=== PATIENT | male | born 1975 | race Caucasian/White ===

== ENCOUNTER 2016-05-06 08:31 | Inpatient (IN) | payer OTHER ==
[~2016-05-06] VITALS: Ht 162.6 cm; Wt 58.4 kg
[2016-05-06] VITALS (16 sets, daily range): BP systolic 113–160; BP diastolic 60–106; PULSE 72–113; RESP 16; TEMP 98–100; O2SAT 98–100
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
[2016-05-06] MEDS ORDERED: TETANUS/DIPHTHERIA TOXOID ADULT 0.5 ML VIAL IM ONE (09:00)
[2016-05-06 09:31] LABS: BLOOD GAS BASE EXCESS -1.7 mmol/L (-2-2); BLOOD GAS CARBOXYHEMOGLOBIN 1.4 % (0-4); BLOOD GAS HCO3 22 mmol/L (22-26); BLOOD GAS METHEMOGLOBIN 0.8 % (0-2); BLOOD GAS O2 HGB SATURATION 97 % (90-100); BLOOD GAS OXYGEN CONTENT 15.3 Vol % (12.0-20.0); BLOOD GAS PCO2 35 mmHg (38-42); BLOOD GAS PO2 164 mmHG (61-120); TEMP CORR TO 98.6
[2016-05-06 09:32] LABS: CRITICAL VALUE NO; FIO2 35 %; OXYGEN DEVICE VENTILATOR; VENT SETTINGS AC/16/ 500 5 PEEP
[2016-05-06 09:33] LABS: DRAW SITE RT RADIAL; NUMBER OF ARTERIAL PUNCTURES 1; STAT YES; ULNAR PULSE PRESENT
[2016-05-06] MEDS: PROPOFOL 1000 MG/100 ML INJ 100 ML IV SCH ×4 (09:54→22:38)
[2016-05-06] MEDS ORDERED: PANTOPRAZOLE SODIUM 40 MG VIAL IVP SCH (10:00)
[2016-05-06] MEDS ORDERED: ENALAPRILAT 1.25 MG/ML VIAL IV PRN (10:00)
[2016-05-06] MEDS ORDERED: MISCELLANEOUS NURSING INFORMATION XX SCH ×2 (10:00→14:45)
[2016-05-06] MEDS ORDERED: SODIUM CHLORIDE 0.9% FLUSH 10 ML FLUSH IV FLUSH PRN ×2 (10:00→14:45)
[2016-05-06] MEDS ORDERED: ONDANSETRON HCL 4 MG/2 ML VIAL IV PRN ×2 (10:00→14:45)
[2016-05-06] MEDS ORDERED: CHLORHEXIDINE GLUCONATE 2 % 1 PACK (2 CLOTHS) TOP PRN ×2 (10:00→14:45)
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
[2016-05-06] MEDS ORDERED: NOREPINEPHRINE 4 MG/4 ML AMP ONE (10:59)
[2016-05-06] MEDS ORDERED: GELFOAM SIZE 100 ONE (11:08)
[2016-05-06] MEDS ORDERED: THROMBIN (TOPICAL) 5,000 UNIT VIAL ONE (11:08)
[2016-05-06] MEDS ORDERED: LIDOCAINE 1%/EPINEPHrine 1:100,000 SOLN 30 ML VIAL ONE (11:08)
[2016-05-06] MEDS ORDERED: VANCOMYCIN HCL 1000 MG VIAL ONE (11:08)
[2016-05-06] MEDS ORDERED: ceFAZolin 2 GM PREMIX 50 ML ONE (11:08)
[2016-05-06] MEDS ORDERED: levETIRAcetam 500 MG/5 ML VIAL IV ONE (11:09)
[2016-05-06] MEDS ORDERED: GENTAMICIN SULFATE 80 MG/2 ML VIAL ONE (11:09)
[2016-05-06] MEDS ORDERED: SODIUM CHLOR 0.9% 250 ML INJ 250 ML ONE (11:09)
[2016-05-06] MEDS ORDERED: MANNITOL INJ 50 ML ONE (11:09)
[2016-05-06] MEDS ORDERED: FUROSEMIDE 40 MG/4 ML VIAL ONE (11:09)
[2016-05-06 11:27] LABS: HEMATOCRIT 34.6 % (39.0-51.0); MEAN CELL VOLUME 91.1 FL (80.0-100.0); MEAN CORPUSCULAR HEMOGLOBIN 30.5 PG (27.0-34.0); MEAN CORPUSCULAR HGB CONC 33.5 % (32.0-36.0); PLATELET COUNT 254 TH/MM3 (150-450); RED CELL DISTRIBUTION WIDTH 12.9 % (11.6-17.2); REVIEW FLAG FINAL; WHITE BLOOD COUNT 10.9 TH/MM3 (4.0-11.0)
[2016-05-06 11:38] LABS: APTT (PATIENT) 23.6 SEC (24.3-30.1); INTERNATIONAL NORMALIZED RATIO 0.9 RATIO; PROTHROMBIN TIME - PATIENT 10.4 SEC (9.8-11.6)
[2016-05-06] MEDS: BACITRACIN TOP OINT 15 GM TUBE TOP SCH ×3 (11:45→20:53)
[2016-05-06 11:55] LABS: BICARBONATE 24.2 MEQ/L (21.0-32.0); CALCIUM-PROTEIN CORRECTED 7.7 MG/DL (8.5-10.1); POTASSIUM 3.6 MEQ/L (3.5-5.1); TOTAL BILIRUBIN ADULT 0.3 MG/DL (0.2-1.0)
[2016-05-06] MEDS ORDERED: LACTATED RINGER'S 1000 ML INJ 1,000 ML IV ONE (12:00)
[2016-05-06] MEDS ORDERED: PROPOFOL 200 MG/20 ML AMP IV ONE (12:00)
[2016-05-06] MEDS ORDERED: PHENYLEPH/NS 1000 MCG/10 ML SYR IV ONE (12:00)
[2016-05-06] MEDS ORDERED: DO NOT ADM ANY ANTICOAGULANT DRUGS XX PRN (13:46)
[2016-05-06] MEDS ORDERED: NS + KCL 20 MEQ INJ 1,000 ML IV SCH (13:59)
[2016-05-06] MEDS ORDERED: SODIUM CHLORIDE 0.9% FLUSH 5 ML FLUSH IVF PRN (14:00)
[2016-05-06] MEDS ORDERED: SODIUM CHLORIDE 0.9% FLUSH 5 ML FLUSH IVF SCH (14:00)
[2016-05-06 14:17] LABS: BLOOD GAS BASE EXCESS -3.4 mmol/L (-2-2); BLOOD GAS CARBOXYHEMOGLOBIN 1.2 % (0-4); BLOOD GAS HCO3 21 mmol/L (22-26); BLOOD GAS METHEMOGLOBIN 1.4 % (0-2); BLOOD GAS O2 HGB SATURATION 97 % (90-100); BLOOD GAS OXYGEN CONTENT 14.2 Vol % (12.0-20.0); BLOOD GAS PCO2 39 mmHg (38-42); BLOOD GAS PO2 175 mmHg (61-120); BLOOD GAS TOTAL HGB 10.1 G/DL (12.0-16.0); CRITICAL VALUE NO; OXYGEN DEVICE VENTILATOR; TEMP CORR TO 98.6
[2016-05-06 14:18] LABS: DRAW SITE ART LINE; FIO2 40 %; STAT NO; VENT SETTINGS AC114/450/PEEP5
[2016-05-06] MEDS ORDERED: *morphine SULFATE 8 MG/ML PERIprocedure ONLY ONE (14:23)
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
[2016-05-06] MEDS ORDERED: RESP: ALBUTEROL 2.5 MG/IPRATROPIUM 0.5 MG NEB (PRN) INH (14:45)
[2016-05-06] MEDS ORDERED: POTASSIUM PHOSPHATE INJ 30 MMOL in SODIUM CHLOR 0.9% 250 ML INJ 250 ML IV PRN (14:45)
[2016-05-06] MEDS ORDERED: MAGNESIUM OXIDE 400 MG TAB PO PRN (14:45)
[2016-05-06] MEDS ORDERED: POTASSIUM PHOSPHATE MONOBASIC 500 MG TAB PO/TUBE PRN (14:45)
[2016-05-06] MEDS ORDERED: MAGNESIUM SULFATE INJ 4 GM in SODIUM CHLORIDE 0.9% INJ 92 ML IV PRN (14:45)
[2016-05-06] MEDS ORDERED: SODIUM PHOSPHATE INJ 30 MMOL in SODIUM CHLOR 0.9% 250 ML INJ 240 ML IV PRN (14:45)
[2016-05-06] MEDS ORDERED: POTASSIUM CHLOR 40 MEQ PREMIX 100 ML IV PRN ×2 (14:45)
[2016-05-06] MEDS ORDERED: MAGNESIUM SULFATE INJ 2 GM in SODIUM CHLORIDE 0.9% INJ 96 ML IV PRN (14:45)
[2016-05-06] MEDS ORDERED: fentaNYL DRIP 250 ML IV SCH (14:45)
[2016-05-06] MEDS ORDERED: POTASSIUM PHOSPHATE MONOBASIC 500 MG TAB PO PRN (14:45)
[2016-05-06] MEDS ORDERED: DEXTROSE 50% IN WATER 50 ML VIAL(D50) IV PUSH PRN (14:45)
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
[2016-05-06] MEDS ORDERED: MORPHINE SULFATE 4 MG/ML INJ IV PUSH PRN ×2 (15:00)
[2016-05-06] MEDS ORDERED: DOCUSATE SODIUM 100 MG CAP PO SCH (15:00)
[2016-05-06] MEDS ORDERED: PANTOPRAZOLE SOD 40 MG DELAYED RELEASE TAB PO SCH (15:00)
[2016-05-06] MEDS ORDERED: BISACODYL 10 MG SUPP PR PRN (15:00)
[2016-05-06] MEDS ORDERED: ACETAMINOPHEN 325 MG TAB PO PRN (15:00)
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
--- NOTE | 2016-05-06 15:06 | RADRPT ---
EXAM DATE/TIME: 05/06/2016 14:34 [facility] COMPARISON: No previous studies available for comparison. INDICATIONS : Central line placement. MEDICAL HISTORY : Unobtainbale. SURGICAL HISTORY : Unobtainbale. ENCOUNTER: Initial ACUITY: 1 day PAIN SCORE: Non-responsive. LOCATION: Bilateral chest FINDINGS: A single view of the chest demonstrates the lungs to be symmetrically aerated without evidence of mas s, infiltrate or effusion. The cardiomediastinal contours are unremarkable. Osseous structures are intact. CONCLUSION: 1. The ET tube is in excellent position. The lungs are clear. Armando Aparicio MD on May 06, 2016 at 15:04 Board Certified Radiologist. This report was verified electronically.
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
[2016-05-06] MEDS: RESP: ALBUTEROL 2.5 MG/IPRATROPIUM 0.5 MG NEB (SCH) INH ×2 (16:01→21:02)
[2016-05-06] MEDS: SODIUM CHLOR 0.9% 1000 ML INJ 1,000 ML IV SCH (16:48)
[2016-05-06] MEDS: PANTOPRAZOLE SODIUM 40 MG VIAL IVP SCH (17:03)
[2016-05-06] MEDS: INSULIN NovoLIN REGULAR SUPPLEMENTAL SCALE SQ SCH ×2 (17:24→23:49)
[2016-05-06] MEDS ORDERED: TERBUTALINE INJ 1 MG/ML AMP SQ PRN (17:45)
[2016-05-06] MEDS ORDERED: niCARdipine INJ 25 MG in SODIUM CHLOR 0.9% 250 ML INJ 250 ML IV SCH (17:45)
[2016-05-06] MEDS: ceFAZolin 2 GM PREMIX 50 ML IV SCH (18:14)
[2016-05-06] MEDS ORDERED: PHENYLEPHRINE INJ 40 MG in DEXTROSE 5% IN WATE 500 ML INJ 496 ML IV SCH ×2 (18:45)
[2016-05-06] MEDS: CHLORHEXIDINE 0.12% (ORAL KIT) 15 ML CUP MT SCH (20:00)
[2016-05-06] MEDS: DOCUSATE SODIUM 50 MG/SENNA 8.6 MG TAB PO SCH (20:52)
[2016-05-06] MEDS: SODIUM CHLORIDE 0.9% FLUSH 10 ML FLUSH IV FLUSH SCH (20:53)
[2016-05-07] VITALS (14 sets, daily range): BP systolic 99–122; BP diastolic 54–77; PULSE 68–105; RESP 16; TEMP 98.8–99.6; O2SAT 100
[2016-05-07] MEDS: SODIUM CHLOR 0.9% 1000 ML INJ 1,000 ML IV SCH ×3 (00:40→20:33)
[2016-05-07] MEDS: levETIRAcetam INJ 500 MG in SODIUM CHLORIDE 0.9% INJ 100 ML IV SCH ×2 (00:50→12:50)
[2016-05-07] MEDS: ceFAZolin 2 GM PREMIX 50 ML IV SCH ×2 (02:35→10:48)
--- NOTE | 2016-05-07 03:26 | RADRPT ---
EXAM DATE/TIME: 05/07/2016 02:13 [facility] COMPARISON: CHEST SINGLE AP, May 06, 2016, 14:34. INDICATIONS : Short of breath. MEDICAL HISTORY : None. SURGICAL HISTORY : None. ENCOUNTER: Subsequent ACUITY: 1 day PAIN SCORE: Non-responsive. LOCATION: Bilateral chest FINDINGS: Endotracheal tube and enteric tube identified. Side port overlies the distal esophagus. Lungs are milo ar. Osseous structures are intact. CONCLUSION: Enteric tube side-port at the distal esophagus approaching the EG junction. This should be advanced. Clear lungs. Oscar Manuel MD on May 07, 2016 at 3:24 Board Certified Radiologist. This report was verified electronically.
[2016-05-07] MEDS: PROPOFOL 1000 MG/100 ML INJ 100 ML IV SCH ×4 (03:40→20:39)
[2016-05-07] MEDS ORDERED: LIDOCAINE HCL 2% 100 MG/5 ML SYRINGE ONE (03:41)
[2016-05-07] MEDS ORDERED: ATROPINE SULFATE 1 MG/10 ML SYRINGE ONE (03:41)
[2016-05-07] MEDS ORDERED: EPINEPHrine HCL (1:10,000) 1 MG/10 ML SYRINGE ONE (03:41)
[2016-05-07] MEDS: RESP: ALBUTEROL 2.5 MG/IPRATROPIUM 0.5 MG NEB (SCH) INH ×4 (03:47→22:14)
[2016-05-07] MEDS ORDERED: CHLORHEXIDINE GLUCONATE 2 % 1 PACK (2 CLOTHS) TOP SCH (04:00)
[2016-05-07] MEDS: CHLORHEXIDINE GLUCONATE 2 % 1 PACK (2 CLOTHS) TOP SCH (04:00)
--- NOTE | 2016-05-07 04:47 | RADRPT ---
EXAM DATE/TIME: 05/07/2016 04:35 [facility] COMPARISON: CT BRAIN W/O CONTRAST, May 06, 2016, 10:05. INDICATIONS : Evaluate hemorrhage. RADIATION DOSE: 38.32 CTDIvol (mGy) MEDICAL HISTORY : Non-responsive. SURGICAL HISTORY : Non-responsive. ENCOUNTER: Initial ACUITY: 1 day PAIN SCALE: Non-responsive LOCATION: cranial TECHNIQUE: Multiple contiguous axial images were obtained of the head. Using automated exposure control and adj ustment of the mA and/or kV according to patient size, radiation dose was kept as low as reasonably a chievable to obtain optimal diagnostic quality images. FINDINGS: There is hemorrhage in the right maxillary sinus and right facial soft tissue swelling seen. Right sc alp soft tissue swelling is noted i am the patient is status post right frontal craniotomy. There is a depressed right frontal comminuted skull fracture is seen. Skin chelsey are present. Frontal approa ch ICP monitor is noted terminating in the right frontal white matter. There is a subdural drain from a right frontal approach identified. There is a hematoma seen in the right frontal lobe with trace s urrounding edema. It is slightly decreased in size measuring 3.1 x 2.1 cm in AP transverse dimension on axial 14. There is a small overlying right frontal subdural hematoma with a maximum transverse wid th of 4 mm. There is mild right to left shift of 5 mm. CONCLUSION: Slight interval decrease in size of right frontal parenchymal bleed with interval drain placement. Ri ght to left shift is noted. Oscar Manuel MD on May 07, 2016 at 4:42 Board Certified Radiologist. This report was verified electronically.
[2016-05-07 05:35] LABS: AUTOMATED NEUTROPHIL # 8.2 TH/MM3 (1.8-7.7); BASOPHIL % 0.2 % (0.0-2.0); EOSINOPHIL % 0.3 % (0.0-4.0); HEMATOCRIT 29.6 % (39.0-51.0); HEMO FLAGS DIFF FINAL; LYMPH % 13.8 % (9.0-44.0); LYMPHOCYTE # 1.6 TH/MM3 (1.0-4.8); MEAN CELL VOLUME 90.1 FL (80.0-100.0); MEAN CORPUSCULAR HEMOGLOBIN 30.9 PG (27.0-34.0); MEAN CORPUSCULAR HGB CONC 34.3 % (32.0-36.0); MONO % 13.4 % (0.0-8.0); NEUT % 72.3 % (16.0-70.0); PLATELET COUNT 252 TH/MM3 (150-450); RED BLOOD COUNT 3.29 MIL/MM3 (4.50-5.90); WHITE BLOOD COUNT 11.3 TH/MM3 (4.0-11.0)
[2016-05-07 05:37] LABS: BLOOD GAS BASE EXCESS 0.5 mmol/L (-2-2); BLOOD GAS CARBOXYHEMOGLOBIN 0.8 % (0-4); BLOOD GAS HCO3 24 mmol/L (22-26); BLOOD GAS O2 HGB SATURATION 97 % (90-100); BLOOD GAS OXYGEN CONTENT 13.9 Vol % (12.0-20.0); BLOOD GAS PCO2 33 mmHg (38-42); BLOOD GAS PO2 154 mmHg (61-120); BLOOD GAS TOTAL HGB 9.9 G/DL (12.0-16.0); CRITICAL VALUE NO; FIO2 35 %; OXYGEN DEVICE VENTILATOR; TEMP CORR TO 98.6; VENT SETTINGS PRVC/AC
[2016-05-07 05:38] LABS: DRAW SITE ART LINE; STAT NO
[2016-05-07] MEDS: INSULIN NovoLIN REGULAR SUPPLEMENTAL SCALE SQ SCH ×3 (06:00→17:35)
[2016-05-07 06:13] LABS: ALKALINE PHOSPHATASE 61 U/L (45-117); ALT (GPT) 31 U/L (12-78); ANION GAP 10 MEQ/L (5-15); AST (GOT) 29 U/L (15-37); BICARBONATE 24.6 MEQ/L (21.0-32.0); BLOOD UREA NITROGEN 6 MG/DL (7-18); CHLORIDE 106 MEQ/L (98-107); GLOMERULAR FILTRATION RATE 146 ML/MIN (>89); SODIUM (NA) 141 MEQ/L (136-145); TOTAL BILIRUBIN ADULT 0.3 MG/DL (0.2-1.0)
[2016-05-07] MEDS: POTASSIUM CHLOR 20 MEQ PREMIX 100 ML IV PRN ×2 (06:36→08:46)
[2016-05-07] MEDS: CHLORHEXIDINE 0.12% (ORAL KIT) 15 ML CUP MT SCH ×2 (08:00→20:33)
[2016-05-07] MEDS: DOCUSATE SODIUM 50 MG/SENNA 8.6 MG TAB PO SCH ×2 (08:46→20:32)
[2016-05-07] MEDS: PANTOPRAZOLE SODIUM 40 MG VIAL IVP SCH (08:46)
[2016-05-07] MEDS: SODIUM CHLORIDE 0.9% FLUSH 10 ML FLUSH IV FLUSH SCH ×2 (08:47→20:33)
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
[2016-05-07] MEDS: SODIUM CHLORIDE 23.4% INJ 188 MEQ in SODIUM CHLOR 0.9% 1000 ML INJ 1,000 ML IV SCH (11:07)
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
[2016-05-07] MEDS: VALPROATE INJ 250 MG in SODIUM CHLORIDE 0.9% INJ 100 ML IV SCH ×2 (12:15→20:32)
[2016-05-07] MEDS: HALOPERIDOL LACTATE 5 MG/ML AMP IV PRN ×2 (12:50→18:14)
[2016-05-07] MEDS ORDERED: SODIUM CHLOR 0.9% 1000 ML INJ 1,000 ML IV ONE (16:00)
[2016-05-07] MEDS: BACITRACIN TOP OINT 15 GM TUBE TOP SCH (20:34)
[2016-05-08] VITALS (18 sets, daily range): BP systolic 97–120; BP diastolic 54–73; PULSE 70–99; RESP 16–24; TEMP 97.7–101; O2SAT 96–100
[2016-05-08] MEDS: levETIRAcetam INJ 500 MG in SODIUM CHLORIDE 0.9% INJ 100 ML IV SCH ×2 (00:07→12:56)
[2016-05-08] MEDS: RESP: ALBUTEROL 2.5 MG/IPRATROPIUM 0.5 MG NEB (SCH) INH ×4 (03:41→20:31)
[2016-05-08 03:42] LABS: HEMATOCRIT 24.1 % (39.0-51.0); MEAN CORPUSCULAR HGB CONC 34.1 % (32.0-36.0); PLATELET COUNT 182 TH/MM3 (150-450); RED BLOOD COUNT 2.65 MIL/MM3 (4.50-5.90); RED CELL DISTRIBUTION WIDTH 12.9 % (11.6-17.2); REVIEW FLAG FINAL; WHITE BLOOD COUNT 6.9 TH/MM3 (4.0-11.0)
[2016-05-08] MEDS: CHLORHEXIDINE GLUCONATE 2 % 1 PACK (2 CLOTHS) TOP SCH (04:00)
[2016-05-08] MEDS: PROPOFOL 1000 MG/100 ML INJ 100 ML IV SCH (04:03)
[2016-05-08 04:08] LABS: POTASSIUM 3.5 MEQ/L (3.5-5.1)
[2016-05-08 04:32] LABS: CALCIUM-PROTEIN CORRECTED 8.8 MG/DL (8.5-10.1)
[2016-05-08 05:32] LABS: BLOOD GAS BASE EXCESS 0.1 mmol/L (-2-2); BLOOD GAS HCO3 24 mmol/L (22-26); BLOOD GAS METHEMOGLOBIN 1.1 % (0-2); BLOOD GAS O2 HGB SATURATION 96 % (90-100); BLOOD GAS OXYGEN CONTENT 11.2 Vol % (12.0-20.0); BLOOD GAS PCO2 36 mmHg (38-42); BLOOD GAS PO2 96 mmHg (61-120); BLOOD GAS TOTAL HGB 8.2 G/DL (12.0-16.0); CRITICAL VALUE NO; DRAW SITE RT RADIAL; FIO2 35 %; NUMBER OF ARTERIAL PUNCTURES 1; OXYGEN DEVICE VENTILATOR; STAT NO; TEMP CORR TO 98.6; ULNAR PULSE PRESENT; VENT SETTINGS PRVC/AC
[2016-05-08] MEDS: INSULIN NovoLIN REGULAR SUPPLEMENTAL SCALE SQ SCH ×5 (06:00→23:28)
[2016-05-08] MEDS: SODIUM CHLOR 0.9% 1000 ML INJ 1,000 ML IV SCH (06:22)
--- NOTE | 2016-05-08 06:37 | RADRPT ---
EXAM DATE/TIME: 05/08/2016 05:32 [place] COMPARISON: CHEST SINGLE AP, May 07, 2016, 2:13. INDICATIONS : Shortness of breath. MEDICAL HISTORY : None. SURGICAL HISTORY : None. ENCOUNTER: Subsequent ACUITY: 3 days PAIN SCORE: Non-responsive. LOCATION: Bilateral chest FINDINGS: A single view of the chest demonstrates the lungs to be symmetrically aerated without evidence of mas s, infiltrate or effusion. Tip of the endotracheal tube 4 cm proximal to the anjelica. Nasogastric tub e tip in the region of the body of the stomach. The cardiomediastinal contours are unremarkable. Oss eous structures are intact. CONCLUSION: No acute disease. Lawrence Stephenson Jr., MD on May 08, 2016 at 6:35 Board Certified Radiologist. This report was verified electronically.
[2016-05-08] MEDS: CHLORHEXIDINE 0.12% (ORAL KIT) 15 ML CUP MT SCH ×2 (08:19→19:33)
[2016-05-08] MEDS: BACITRACIN TOP OINT 15 GM TUBE TOP SCH ×2 (09:00→19:33)
[2016-05-08] MEDS: DOCUSATE SODIUM 50 MG/SENNA 8.6 MG TAB PO SCH ×2 (09:41→19:33)
[2016-05-08] MEDS: PANTOPRAZOLE SODIUM 40 MG VIAL IVP SCH (09:42)
[2016-05-08] MEDS: SODIUM CHLORIDE 0.9% FLUSH 10 ML FLUSH IV FLUSH SCH ×2 (09:43→19:33)
[2016-05-08] MEDS: VALPROATE INJ 250 MG in SODIUM CHLORIDE 0.9% INJ 100 ML IV SCH ×2 (09:44→21:08)
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
[2016-05-08] MEDS ORDERED: FUROSEMIDE 40 MG/4 ML VIAL IV PUSH ONE (12:00)
[2016-05-08] MEDS: POTASSIUM CHLOR 20 MEQ PREMIX 100 ML IV PRN ×4 (13:07→19:34)
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
[2016-05-08] MEDS: SODIUM CHLORIDE 23.4% INJ 188 MEQ in SODIUM CHLOR 0.9% 1000 ML INJ 1,000 ML IV SCH (14:57)
[2016-05-08] MEDS ORDERED: HYDROmorphone HCL PF 1 MG/ML VIAL IV PUSH PRN (17:15)
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
[2016-05-08] MEDS ORDERED: LORazepam 2 MG/ML VIAL IV PUSH PRN (17:30)
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
[2016-05-08] MEDS: MULTIVITAMIN TAB PO SCH (19:33)
[2016-05-08] MEDS: THIAMINE HCL 100 MG TAB PO SCH (19:33)
[2016-05-08] MEDS: FOLIC ACID 1 MG TAB PO SCH (19:33)
[2016-05-08] MEDS: FAMOTIDINE 20 MG TAB PO SCH (19:33)
[2016-05-08] MEDS: DIAZEPAM 10 MG TAB PO SCH (21:08)
[2016-05-09] VITALS (11 sets, daily range): BP systolic 112–145; BP diastolic 62–86; PULSE 85–109; RESP 18–22; TEMP 97.8–99.6; O2SAT 98–100
[2016-05-09] MEDS: levETIRAcetam INJ 500 MG in SODIUM CHLORIDE 0.9% INJ 100 ML IV SCH (01:06)
[2016-05-09] MEDS: CHLORHEXIDINE GLUCONATE 2 % 1 PACK (2 CLOTHS) TOP SCH (03:08)
[2016-05-09 03:53] LABS: HEMATOCRIT 25.2 % (39.0-51.0); MEAN CELL VOLUME 90.9 FL (80.0-100.0); MEAN CORPUSCULAR HGB CONC 34.2 % (32.0-36.0); PLATELET COUNT 211 TH/MM3 (150-450); RED BLOOD COUNT 2.77 MIL/MM3 (4.50-5.90); RED CELL DISTRIBUTION WIDTH 12.8 % (11.6-17.2); REVIEW FLAG FINAL; WHITE BLOOD COUNT 7.8 TH/MM3 (4.0-11.0)
[2016-05-09 04:27] LABS: BICARBONATE 28.2 MEQ/L (21.0-32.0); POTASSIUM 3.8 MEQ/L (3.5-5.1)
[2016-05-09] MEDS: RESP: ALBUTEROL 2.5 MG/IPRATROPIUM 0.5 MG NEB (SCH) INH ×4 (04:49→20:58)
[2016-05-09] MEDS: INSULIN NovoLIN REGULAR SUPPLEMENTAL SCALE SQ SCH (05:21)
[2016-05-09] MEDS: DIAZEPAM 10 MG TAB PO SCH ×3 (05:23→23:11)
[2016-05-09] MEDS: CHLORHEXIDINE 0.12% (ORAL KIT) 15 ML CUP MT SCH (08:00)
[2016-05-09] MEDS: SODIUM CHLORIDE 0.9% FLUSH 10 ML FLUSH IV FLUSH SCH ×2 (09:00→23:13)
[2016-05-09] MEDS: DOCUSATE SODIUM 50 MG/SENNA 8.6 MG TAB PO SCH ×2 (09:00→21:00)
[2016-05-09] MEDS: FOLIC ACID 1 MG TAB PO SCH (09:27)
[2016-05-09] MEDS: FAMOTIDINE 20 MG TAB PO SCH ×2 (09:27→23:11)
[2016-05-09] MEDS: MULTIVITAMIN TAB PO SCH (09:27)
[2016-05-09] MEDS: THIAMINE HCL 100 MG TAB PO SCH (09:27)
[2016-05-09] MEDS: VALPROATE INJ 250 MG in SODIUM CHLORIDE 0.9% INJ 100 ML IV SCH (09:27)
[2016-05-09] MEDS: BACITRACIN TOP OINT 15 GM TUBE TOP SCH ×2 (10:00→23:12)
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
[2016-05-09] MEDS: VALPROIC ACID 250 MG CAP PO SCH (23:10)
[2016-05-09] MEDS: levETIRAcetam 500 MG TAB PO SCH (23:11)
[2016-05-10] VITALS (7 sets, daily range): BP systolic 100–138; BP diastolic 68–85; PULSE 72–88; RESP 18; TEMP 97.1–98.3; O2SAT 97–100
[2016-05-10] MEDS: RESP: ALBUTEROL 2.5 MG/IPRATROPIUM 0.5 MG NEB (SCH) INH ×3 (03:59→16:00)
[2016-05-10] MEDS: DIAZEPAM 10 MG TAB PO SCH ×3 (04:37→22:55)
[2016-05-10] MEDS: HALOPERIDOL LACTATE 5 MG/ML AMP IV PRN (04:37)
[2016-05-10 06:08] LABS: HEMATOCRIT 27.9 % (39.0-51.0); MEAN CELL VOLUME 90.2 FL (80.0-100.0); MEAN CORPUSCULAR HEMOGLOBIN 30.9 PG (27.0-34.0); MEAN CORPUSCULAR HGB CONC 34.3 % (32.0-36.0); PLATELET COUNT 324 TH/MM3 (150-450); RED CELL DISTRIBUTION WIDTH 12.6 % (11.6-17.2); REVIEW FLAG FINAL; WHITE BLOOD COUNT 6.9 TH/MM3 (4.0-11.0)
[2016-05-10 06:11] LABS: POTASSIUM 3.4 MEQ/L (3.5-5.1)
[2016-05-10] MEDS ORDERED: POTASSIUM CHLORIDE 20 MEQ CONTROLLED RELEASE TAB PO ONE (08:00)
[2016-05-10] MEDS: VALPROIC ACID 250 MG CAP PO SCH ×2 (08:41→22:51)
[2016-05-10] MEDS: levETIRAcetam 500 MG TAB PO SCH ×2 (08:41→22:51)
[2016-05-10] MEDS: FOLIC ACID 1 MG TAB PO SCH (08:42)
[2016-05-10] MEDS: THIAMINE HCL 100 MG TAB PO SCH (08:42)
[2016-05-10] MEDS: MULTIVITAMIN TAB PO SCH (08:42)
[2016-05-10] MEDS: FAMOTIDINE 20 MG TAB PO SCH ×2 (08:42→22:51)
[2016-05-10] MEDS: DOCUSATE SODIUM 50 MG/SENNA 8.6 MG TAB PO SCH ×2 (08:42→21:00)
[2016-05-10] MEDS: BACITRACIN TOP OINT 15 GM TUBE TOP SCH ×2 (08:46→22:56)
[2016-05-10] MEDS: SODIUM CHLORIDE 0.9% FLUSH 10 ML FLUSH IV FLUSH SCH ×2 (09:00→22:56)
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
[2016-05-11] VITALS: BP 97/66; PULSE 78; RESP 18; TEMP 97.1; O2SAT 97
[2016-05-11 04:00] VITALS: BP 106/72; PULSE 79; RESP 18; TEMP 97.7; O2SAT 97
[2016-05-11] MEDS: DIAZEPAM 10 MG TAB PO SCH ×3 (05:46→21:42)
[2016-05-11 05:49] LABS: HEMATOCRIT 31.9 % (39.0-51.0); MEAN CELL VOLUME 90.9 FL (80.0-100.0); MEAN CORPUSCULAR HEMOGLOBIN 32.3 PG (27.0-34.0); MEAN CORPUSCULAR HGB CONC 35.5 % (32.0-36.0); PLATELET COUNT 397 TH/MM3 (150-450); RED BLOOD COUNT 3.51 MIL/MM3 (4.50-5.90); RED CELL DISTRIBUTION WIDTH 12.8 % (11.6-17.2); REVIEW FLAG FINAL; WHITE BLOOD COUNT 9.3 TH/MM3 (4.0-11.0)
[2016-05-11 06:46] LABS: BICARBONATE 28.8 MEQ/L (21.0-32.0); POTASSIUM 4.2 MEQ/L (3.5-5.1)
[2016-05-11 08:19] VITALS: O2SAT 99
[2016-05-11 08:43] VITALS: BP 117/70; PULSE 100; RESP 20; TEMP 98.8; O2SAT 98
[2016-05-11] MEDS: SODIUM CHLORIDE 0.9% FLUSH 10 ML FLUSH IV FLUSH SCH ×2 (09:00→21:00)
[2016-05-11] MEDS: DOCUSATE SODIUM 50 MG/SENNA 8.6 MG TAB PO SCH ×2 (09:00→21:51)
[2016-05-11] MEDS: VALPROIC ACID 250 MG CAP PO SCH ×2 (10:15→21:51)
[2016-05-11] MEDS: levETIRAcetam 500 MG TAB PO SCH ×2 (10:15→21:42)
[2016-05-11] MEDS: MULTIVITAMIN TAB PO SCH (10:15)
[2016-05-11] MEDS: FAMOTIDINE 20 MG TAB PO SCH ×2 (10:16→21:42)
[2016-05-11] MEDS: THIAMINE HCL 100 MG TAB PO SCH (10:16)
[2016-05-11] MEDS: FOLIC ACID 1 MG TAB PO SCH (10:16)
[2016-05-11] MEDS: BACITRACIN TOP OINT 15 GM TUBE TOP SCH ×2 (10:17→21:44)
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
[2016-05-11 12:33] VITALS: BP 116/79; PULSE 94; RESP 20; TEMP 99.2; O2SAT 95
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
[2016-05-11 20:31] VITALS: BP 144/92; PULSE 75; RESP 20; TEMP 98.3; O2SAT 99
[2016-05-12 00:21] VITALS: BP 106/66; PULSE 85; RESP 20; TEMP 98.2; O2SAT 97
[2016-05-12] MEDS: DIAZEPAM 10 MG TAB PO SCH ×2 (04:29→14:27)
[2016-05-12 04:59] VITALS: BP 105/65; PULSE 85; RESP 18; TEMP 98.5; O2SAT 100
[2016-05-12 05:26] LABS: HEMATOCRIT 30.7 % (39.0-51.0); MEAN CELL VOLUME 89.7 FL (80.0-100.0); MEAN CORPUSCULAR HEMOGLOBIN 30.5 PG (27.0-34.0); PLATELET COUNT 444 TH/MM3 (150-450); RED BLOOD COUNT 3.43 MIL/MM3 (4.50-5.90); RED CELL DISTRIBUTION WIDTH 12.7 % (11.6-17.2); REVIEW FLAG FINAL; WHITE BLOOD COUNT 9.4 TH/MM3 (4.0-11.0)
[2016-05-12 05:49] LABS: BICARBONATE 28.7 MEQ/L (21.0-32.0); POTASSIUM 4.1 MEQ/L (3.5-5.1)
[2016-05-12 08:00] VITALS: BP 112/68; PULSE 84; RESP 18; TEMP 98.1; O2SAT 97
[2016-05-12] MEDS: SODIUM CHLORIDE 0.9% FLUSH 10 ML FLUSH IV FLUSH SCH ×2 (09:00→21:00)
[2016-05-12] MEDS: levETIRAcetam 500 MG TAB PO SCH ×2 (09:19→22:28)
[2016-05-12] MEDS: DOCUSATE SODIUM 50 MG/SENNA 8.6 MG TAB PO SCH ×2 (09:20→22:27)
[2016-05-12] MEDS: FAMOTIDINE 20 MG TAB PO SCH ×2 (09:20→22:28)
[2016-05-12] MEDS: VALPROIC ACID 250 MG CAP PO SCH ×2 (09:20→22:27)
[2016-05-12] MEDS: BACITRACIN TOP OINT 15 GM TUBE TOP SCH ×2 (09:21→22:28)
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
[2016-05-12 12:00] VITALS: BP 121/68; PULSE 84; RESP 18; TEMP 98.9; O2SAT 99
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
[2016-05-12 16:00] VITALS: BP 118/64; PULSE 78; RESP 18; TEMP 97.9; O2SAT 97
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
[2016-05-12] MEDS: ENOXAPARIN SODIUM 30 MG/0.3 ML SYRINGE SQ SCH (17:42)
[2016-05-12 21:06] VITALS: BP 124/61; PULSE 108; RESP 20; TEMP 99.8; O2SAT 98
[2016-05-13 00:41] VITALS: BP 116/73; PULSE 98; RESP 20; TEMP 99; O2SAT 100
[2016-05-13] MEDS: ENOXAPARIN SODIUM 30 MG/0.3 ML SYRINGE SQ SCH ×2 (05:19→15:24)
[2016-05-13 05:52] LABS: HEMATOCRIT 29.6 % (39.0-51.0); MEAN CELL VOLUME 90.1 FL (80.0-100.0); MEAN CORPUSCULAR HEMOGLOBIN 30.5 PG (27.0-34.0); MEAN CORPUSCULAR HGB CONC 33.8 % (32.0-36.0); PLATELET COUNT 458 TH/MM3 (150-450); RED BLOOD COUNT 3.28 MIL/MM3 (4.50-5.90); RED CELL DISTRIBUTION WIDTH 12.6 % (11.6-17.2); REVIEW FLAG FINAL; WHITE BLOOD COUNT 8.3 TH/MM3 (4.0-11.0)
[2016-05-13 05:55] LABS: BICARBONATE 28.3 MEQ/L (21.0-32.0); POTASSIUM 3.8 MEQ/L (3.5-5.1)
[2016-05-13 06:39] VITALS: BP 142/91; PULSE 92; RESP 20; TEMP 97.4; O2SAT 100
[2016-05-13] MEDS: FAMOTIDINE 20 MG TAB PO SCH ×2 (08:26→20:32)
[2016-05-13] MEDS: VALPROIC ACID 250 MG CAP PO SCH ×2 (08:26→20:32)
[2016-05-13] MEDS: DOCUSATE SODIUM 50 MG/SENNA 8.6 MG TAB PO SCH ×2 (08:26→20:32)
[2016-05-13] MEDS: DIAZEPAM 10 MG TAB PO SCH ×2 (08:26→20:33)
[2016-05-13] MEDS: levETIRAcetam 500 MG TAB PO SCH ×2 (08:27→20:32)
[2016-05-13] MEDS: SODIUM CHLORIDE 0.9% FLUSH 10 ML FLUSH IV FLUSH SCH ×2 (08:30→20:32)
[2016-05-13] MEDS: BACITRACIN TOP OINT 15 GM TUBE TOP SCH ×2 (08:31→20:33)
[2016-05-13 09:09] VITALS: BP 112/73; PULSE 90; RESP 18; TEMP 96.9; O2SAT 100
[2016-05-13 13:16] VITALS: BP 144/81; PULSE 96; RESP 18; TEMP 96.7; O2SAT 100
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
[2016-05-13 16:00] VITALS: BP 141/94; PULSE 102; RESP 18; TEMP 98.9; O2SAT 97
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
[2016-05-13] MEDS ORDERED: WALKER WHEELS/F1 MIS (17:28)
[2016-05-13 20:00] VITALS: BP 131/76; PULSE 104; RESP 20; TEMP 98.9; O2SAT 100
[2016-05-13] MEDS ORDERED: HALOPERIDOL LACTATE 5 MG/ML AMP IV PRN (23:30)
[2016-05-13] MEDS ORDERED: HALOPERIDOL LACTATE 5 MG/ML AMP IV ONE (23:30)
[2016-05-14] VITALS: BP 149/79; PULSE 91; RESP 20; TEMP 98; O2SAT 100
[2016-05-14 04:00] VITALS: BP 118/84; PULSE 95; RESP 20; TEMP 97.5; O2SAT 99
[2016-05-14] MEDS: ENOXAPARIN SODIUM 30 MG/0.3 ML SYRINGE SQ SCH ×2 (04:00→17:52)
[2016-05-14] MEDS: DOCUSATE SODIUM 50 MG/SENNA 8.6 MG TAB PO SCH ×2 (09:00→22:51)
[2016-05-14] MEDS: SODIUM CHLORIDE 0.9% FLUSH 10 ML FLUSH IV FLUSH SCH ×2 (09:00→21:00)
[2016-05-14 09:02] VITALS: BP 115/71; PULSE 77; RESP 18; TEMP 97.2; O2SAT 98
[2016-05-14] MEDS: FAMOTIDINE 20 MG TAB PO SCH ×2 (10:31→22:52)
[2016-05-14] MEDS: VALPROIC ACID 250 MG CAP PO SCH ×2 (10:31→22:54)
[2016-05-14] MEDS: DIAZEPAM 10 MG TAB PO SCH ×2 (10:32→22:52)
[2016-05-14] MEDS: QUEtiapine FUMARATE 25 MG TAB PO SCH ×3 (11:45→21:00)
[2016-05-14 13:13] VITALS: BP 118/75; PULSE 86; RESP 18; TEMP 97.3; O2SAT 96
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
[2016-05-14] MEDS: BACITRACIN TOP OINT 15 GM TUBE TOP SCH ×2 (17:51→21:00)
[2016-05-14 18:02] VITALS: BP 132/86; PULSE 73; RESP 18; TEMP 97.5; O2SAT 100
[2016-05-14 20:00] VITALS: BP 136/57; PULSE 58; RESP 18; TEMP 98.4; O2SAT 97
[2016-05-15 04:00] VITALS: BP 115/68; PULSE 73; RESP 18; TEMP 97.3; O2SAT 99
[2016-05-15] MEDS: ENOXAPARIN SODIUM 30 MG/0.3 ML SYRINGE SQ SCH (05:09)
[2016-05-15] MEDS ORDERED: SENN1TAB PO (07:52)
[2016-05-15 08:00] VITALS: BP 125/76; PULSE 73; RESP 18; TEMP 97.1; O2SAT 100
[2016-05-15] MEDS: VALPROIC ACID 250 MG CAP PO SCH (08:27)
[2016-05-15] MEDS: SODIUM CHLORIDE 0.9% FLUSH 10 ML FLUSH IV FLUSH SCH (08:27)
[2016-05-15] MEDS: DIAZEPAM 10 MG TAB PO SCH (08:27)
[2016-05-15] MEDS: FAMOTIDINE 20 MG TAB PO SCH (08:28)
[2016-05-15] MEDS: DOCUSATE SODIUM 50 MG/SENNA 8.6 MG TAB PO SCH (08:29)
[2016-05-15] MEDS: QUEtiapine FUMARATE 25 MG TAB PO SCH ×2 (08:30→11:18)
[2016-05-15] MEDS: BACITRACIN TOP OINT 15 GM TUBE TOP SCH (08:32)
[2016-05-15] MEDS ORDERED: PERC5TAB12 PO (11:18)
[2016-05-15 12:00] VITALS: BP 118/82; PULSE 90; RESP 18; TEMP 97.1; O2SAT 98
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
== END 2016-05-15 13:32 | disposition home or self-care (01) | DRG 23 ==
LOC: NEPC 08:31 → NEDA 08:45 → N03B 10:29 → N05B 05-09 14:21
PROVIDERS: ADMIT Surgery; ATTEND Surgery
PROC: 5A1945Z Respiratory Ventilation, 24-96 Consecutive Hours (ICD-10-PCS; 2016-05-06)
PROC: 0NS104Z Reposition Frontal Bone with Internal Fixation Device, Open Approach (ICD-10-PCS; 2016-05-06)
PROC: 00H032Z Insertion of Monitoring Device into Brain, Percutaneous Approach (ICD-10-PCS; 2016-05-06)
PROC: 00Q20ZZ Repair Dura Mater, Open Approach (ICD-10-PCS; principal; 2016-05-06 11:35)
DX: S06.369A Traumatic hemorrhage of cerebrum, unspecified, with loss of consciousness of unspecified duration, initial encounter (principal); G93.5 Compression of brain; J96.01 Acute respiratory failure with hypoxia; J96.02 Acute respiratory failure with hypercapnia; D62 Acute posthemorrhagic anemia; E44.1 Mild protein-calorie malnutrition; J44.9 Chronic obstructive pulmonary disease, unspecified; F19.20 Other psychoactive substance dependence, uncomplicated; S02.81XA Fracture of other specified skull and facial bones, right side, initial encounter for closed fracture; S02.0XXB Fracture of vault of skull, initial encounter for open fracture; S06.6X9A Traumatic subarachnoid hemorrhage with loss of consciousness of unspecified duration, initial encounter; S06.1X9A Traumatic cerebral edema with loss of consciousness of unspecified duration, initial encounter; S62.315A Displaced fracture of base of fourth metacarpal bone, left hand, initial encounter for closed fracture; S62.337A Displaced fracture of neck of fifth metacarpal bone, left hand, initial encounter for closed fracture; I10 Essential (primary) hypertension; E87.6 Hypokalemia; R73.9 Hyperglycemia, unspecified; T15.81XA Foreign body in other and multiple parts of external eye, right eye, initial encounter; F60.2 Antisocial personality disorder; Y04.8XXA Assault by other bodily force, initial encounter; Z59.0 Homelessness; Z72.0 Tobacco use; Z68.22 Body mass index [BMI] 22.0-22.9, adult; Z78.1 Physical restraint status
CPT/HCPCS: 36600; 70450; 70486; 71010; 73100; 76937; 80048; 80053; 82805; 82948; 83605; 83930; 84155; 84295; 85025; 85027; 85384; 85610; 85730; 86850; 86900; 86901; 87641; 94002; 94003; 94150; 94640; 94664; 94667; 94668; 94770; C1713; C9113; J0171; J0461; J0690; J1170; J1580; J1630; J1650; J1940; J1953; J2150; J2270; J2370; J3010; J3370; J3480; J7030; J7050; J7120